=== PATIENT | female | born 1960 | race Caucasian/White ===

== ENCOUNTER 2019-04-05 05:13 | Inpatient (IN) ==
--- NOTE | 2019-03-14 13:12 | PAT Medication Instructions ---
Medication Instructions Date of Service March 14, 2019 Home Medications Medication Instructions Recorded acetaminophen 1,000 mg PO Q8H PRN #90 cap 08/17/18 albuterol sulfate 1 puff INHALATION Q6H PRN omeprazole 20 mg PO QAM acetaminophen 1,000 mg PO Q8H PRN calcium carbonate [Calcium 600] 600 mg PO QAM cholecalciferol (vitamin D3) [Vitamin D3] 2,000 unit PO QAM meloxicam 15 mg PO QAM montelukast [Singulair] 10 mg PO PM vitamins A,C,N-ftuj-toxilo [PreserVision AREDS] 1 cap PO BID ASK your surgeon for instructions meloxicam 15 mg PO QAM STOP taking 2 weeks before surgery (or as soon as possible if surgery is within 2 weeks) vitamins A,C,B-parl-iaencm [PreserVision AREDS] 1 cap PO BID DO NOT take the morning of surgery calcium carbonate [Calcium 600] 600 mg PO QAM cholecalciferol (vitamin D3) [Vitamin D3] 2,000 unit PO QAM Take morning of surgery With a small sip of water, OTHERWISE NOTHING TO EAT OR DRINK AFTER MIDNIGHT: albuterol sulfate 1 puff INHALATION Q6H PRN (use if needed; please bring with you to hospital day of surgery if possible) omeprazole 20 mg PO QAM acetaminophen 1,000 mg PO Q8H PRN (okay to take up to 4 hours prior to surgery if needed) Take evening before surgery albuterol sulfate 1 puff INHALATION Q6H PRN (if needed) acetaminophen 1,000 mg PO Q8H PRN (if needed) montelukast [Singulair] 10 mg PO PM Other Notes If you have any questions please call us at [phone] or [phone] or [phone] or [phone]
--- NOTE | 2019-03-15 10:16 | Anesthesiology Consultation ---
Date of Service March 15, 2019 Assessment & Plan (1) Encounter for pre-operative examination: - Awaiting review preop testing. - Awaiting surgeon-ordered PCP clearance (Dr. Raza). Chart Review Chart Review: Patient seen in Pre Admission Testing Teaching & Discussion Pre-Anesthesia Teaching/Discussion Notes: Instructed NPO after midnight before surgery,except medications with 15 cc of water. Medication instructions provided according to the PAT guidelines. History Surgery Operation Date: 04/05/19 09:25 Proposed Procedures p Right Anterior Total Hip Arthroplasty - Vinod Singh DO Height/Weight Height: 5 ft 6 in Weight: 71 kg Allergies Allergy/AdvReac Type Severity Reaction Status Date / Time Sulfa (Sulfonamide Allergy UNKNOWN Verified 03/08/19 14:02 Antibiotics) REACTION Medications Home Medications Medication Instructions Recorded Confirmed Last Taken albuterol sulfate 1 puff INHALATION Q6H PRN 07/27/18 03/08/19 02/15/18 12:00 omeprazole 20 mg PO QAM 07/27/18 03/08/19 08/16/18 06:30 acetaminophen 1,000 mg PO Q8H PRN #90 cap 08/17/18 03/08/19 Unknown calcium carbonate [Calcium 600] 600 mg PO QAM 03/08/19 03/08/19 Unknown cholecalciferol (vitamin D3) 2,000 unit PO QAM 03/08/19 03/08/19 Unknown [Vitamin D3] meloxicam 15 mg PO QAM 03/08/19 03/08/19 Unknown montelukast [Singulair] 10 mg PO PM 03/08/19 03/08/19 Unknown vitamins A,C,U-icto-qwmvsw 1 cap PO BID 03/08/19 03/08/19 Unknown [PreserVision AREDS] Past Medical History Medical History Asthma stable Emphysema lung suspected per CXR GERD (gastroesophageal reflux disease) occasional Osteoarthritis Exercise / Class Metabolic Activity II 4-5 Yardwork/Stairs/Walk up hill Past Family History Family History Mother Family history of diabetes mellitus Sister Family history of diabetes mellitus Past Surgical History Surgical History History of arthroscopy of left knee History of colonoscopy History of left hip replacement 08/16/18: SAB x1 at L3-L4 at [facility] History of tooth extraction Past Anesthesia History No Hx of Anesthesia Complications and No Family Hx of Anesthesia Complications History of PONV No Hx of PONV and Hx of Motion Sickness (occasional) Social History Smoking Status: Never smoker Do You Dip or Chew Tobacco: No Hx Alcohol Use: No Hx Substance Use: No substance use type: does not use Review of Systems Occasional reflux. Patient denies chest pain, shortness of breath, dyspnea on exertion, cough, wheezing, palpitations. Physical Exam Vital Signs VITALS BP 111/74 P 66 TEMP 97.9 SP02 96%RA RESP 16 PHYSICAL Mildly decreased cervical extension (2/2 arthritis per patient) Full TMJ range of motion. TMD 3 finger breaths Mallampati Score 2 Dentition: missing side Lungs: clear throughout to auscultation Cardiac: regular rate and rhythm, no murmurs noted Spine: normal Carotid arteries: negative bruit Extremities: no edema Testing Electrocardiogram Date: 08/02/18 Findings: + NSR @ (89) Chest X-Ray Date: 08/02/18 Findings: + NAD Underlying emphysema is suspected.
[2019-03-15 10:58] LABS: Basophils # (auto) 0.02 K/uL (0-0.2); Basophils % (auto) 0.3 %; Eosinophils # (auto) 0.14 K/uL (0-0.5); Eosinophils % (auto) 2.1 %; Hematocrit (blood only) 40.7 % (37-47); Hemoglobin 14.2 g/dL (12.0-16.0); Immature Granulocytes # (auto) 0.01 K/uL (0.00-0.02); Immature Granulocytes % (auto) 0.2 %; Lymphocytes # (auto) 1.21 K/uL (1.2-3.4); Lymphocytes % (auto) 18.3 %; Mean Corpuscular Hemoglobin 30.4 pg (25-34); Mean Corpuscular Hgb Conc 34.9 g/dL (32-36); Mean Corpuscular Volume 87.2 fL (80-100); Mean Platelet Volume 9.5 fL (7.4-10.4); Monocytes % (auto) 7.6 %; Neutrophils # (auto) 4.74 K/uL (1.4-6.5); Neutrophils % (auto) 71.5 %; Platelet Count 238 K/uL (130-400); RDW Coefficient of Variation 12.8 % (11.5-14.5); RDW Standard Deviation 40.8 fL (36.4-46.3); Red Blood Count 4.67 M/uL (4.2-5.4); White Blood Count 6.62 K/uL (4.8-10.8)
[2019-03-15 11:03] LABS: Appearance Urine Clear (Clear); Bacteria Urine Automated Negative (Negative); Bilirubin Urine Negative (Negative); Blood Urine Trace (Negative); Color Urine Yellow; Epithelial Cell Urine Auto 0-5 /lpf (0-5); Glucose Urine UA Negative (Negative); Ketones Urine Negative (Negative); Leukocyte Esterase Urine Negative (Negative); Nitrite Urine Negative (Negative); Protein Urine Negative (Negative); RBC Urine Automated 0-4 /hpf (0-4); Specific Gravity Urine 1.021 (1.000-1.030); Urobilinogen Urine Negative (Negative)
[2019-03-15 11:07] LABS: BUN Creatinine Ratio 14.7 (10-20); Calcium 9.5 mg/dl (8.5-10.1); Creatinine Clr Calc Pharmacy 69.2 ml/min; Est GFR (African American) 90.8; Est GFR (Non-African American) 78.3; Potassium 4.2 mmol/L (3.5-5.1)
[2019-03-15 11:09] LABS: Partial Thromboplastin Ratio 0.9; Partial Thromboplastin Time 23.9 Seconds (21.0-31.0); Prothrombin Time 9.8 Seconds (9.0-12.0)
[2019-03-15 11:25] LABS: Estimated Average Glucose 97 mg/dl
--- NOTE | 2019-03-28 14:01 | Anesthesiology Consultation ---
Date of Service March 28, 2019 Assessment & Plan (1) Encounter for pre-operative examination: Chart Review Chart Review: Acceptable Risk for Surgery The PCP has cleared the patient for surgery. History Surgery Operation Date: 04/05/19 09:25 Proposed Procedures p Right Anterior Total Hip Arthroplasty - Vinod Singh DO Height/Weight Height: 5 ft 6 in Weight: 71 kg Allergies Allergy/AdvReac Type Severity Reaction Status Date / Time Sulfa (Sulfonamide Allergy UNKNOWN Verified 03/08/19 14:02 Antibiotics) REACTION Medications Home Medications Medication Instructions Recorded Confirmed Last Taken albuterol sulfate 1 puff INHALATION Q6H PRN 07/27/18 03/08/19 02/15/18 12:00 omeprazole 20 mg PO QAM 07/27/18 03/08/19 08/16/18 06:30 acetaminophen 1,000 mg PO Q8H PRN #90 cap 08/17/18 03/08/19 Unknown calcium carbonate [Calcium 600] 600 mg PO QAM 03/08/19 03/08/19 Unknown cholecalciferol (vitamin D3) 2,000 unit PO QAM 03/08/19 03/08/19 Unknown [Vitamin D3] meloxicam 15 mg PO QAM 03/08/19 03/08/19 Unknown montelukast [Singulair] 10 mg PO PM 03/08/19 03/08/19 Unknown vitamins A,C,P-wnyi-rpoflw 1 cap PO BID 03/08/19 03/08/19 Unknown [PreserVision AREDS] Past Medical History Medical History Asthma stable Emphysema lung suspected per CXR GERD (gastroesophageal reflux disease) occasional Osteoarthritis Past Family History Family History Mother Family history of diabetes mellitus Sister Family history of diabetes mellitus Past Surgical History Surgical History History of arthroscopy of left knee History of colonoscopy History of left hip replacement 08/16/18: SAB x1 at L3-L4 at [facility] History of tooth extraction Social History Smoking Status: Never smoker Do You Dip or Chew Tobacco: No Hx Alcohol Use: No Hx Substance Use: No substance use type: does not use Testing Laboratory Results 03/15/19 10:13 03/15/19 10:13 PT 9.8 Seconds (9.0-12.0) 03/15/19 10:13 INR 1.0 (0.9-1.1) 03/15/19 10:13 APTT 23.9 Seconds (21.0-31.0) 03/15/19 10:13 Hemoglobin A1c 5.0 % (4.5-5.6) 03/15/19 10:13 Urine Color Yellow 03/15/19 08:21 Urine Appearance Clear (Clear) 03/15/19 08:21 Urine pH 5.0 (4.5-7.5) 03/15/19 08:21 Ur Specific [place] 1.021 (1.000-1.030) 03/15/19 08:21 Urine Protein Negative (Negative) 03/15/19 08:21 Urine Glucose (UA) Negative (Negative) 03/15/19 08:21 Urine Ketones Negative (Negative) 03/15/19 08:21 Urine Nitrite Negative (Negative) 03/15/19 08:21 Ur Leukocyte Esterase Negative (Negative) 03/15/19 08:21 Urine WBC (Auto) 1-5 /hpf (0-5) 03/15/19 08:21 Urine RBC (Auto) 0-4 /hpf (0-4) 03/15/19 08:21 U Hyaline Cast (Auto) 1-5 /lpf (0-5) 03/15/19 08:21 U Epithel Cells (Auto) 0-5 /lpf (0-5) 03/15/19 08:21 Urine Bacteria (Auto) Negative (Negative) 03/15/19 08:21 Blood Type B Positive 03/15/19 10:13 Antibody Screen POSITIVE A 03/15/19 10:13 03/15/19 10:13 Urine Culture - Final Urine,Clean Catch Three types of organisms present, all low counts probable skin anastasia. No further identifications or sensitivities to follow. Electrocardiogram Date: 08/02/18 Findings: + NSR @ (89) Chest X-Ray Date: 08/02/18 Findings: + NAD
--- NOTE | 2019-04-04 15:02 | History & Physical Report ---
Date of Service April 04, 2019 Assessment & Plan (1) Degenerative joint disease of right hip: I have indicated the patient for right anterior total hip replacement. The risks, benefits and complications of surgery were explained to the patient which include but not limited to infection, acute blood loss, DVT/PE, injury to nerves, vessels, bone, soft tissue, arthrofibrosis, chronic pain, failure of the prosthesis, hip dislocation, leg length discrepancy, need for additional surgery, cardiac and pulmonary events and . The patient wished to proceed with surgery and informed consent was obtained at this time. We will plan for ASA BID post-operatively for DVT prophylaxis. Upon discharge the patient will be discharged home with home health services. Appropriate clearances by PCP were obtained. History of Present Illness Chief Complaint: Right hip pain/djd Primary Care Provider: Layla Raza The patient is a 59 year old female who presents with complaints of severe right hip pain and DJD. The patient has failed outpatient conservative treatments to this point which included NSAIDs, IA corticosteroid injection, PT, home exercise/walking program. The patient's pain and limited function have progressed to the point where they severely hinder their activities of daily living and they no longer tolerate exercise programs. They are requesting to proceed with total hip replacement surgery. Allergies Allergy/AdvReac Type Severity Reaction Status Date / Time Sulfa (Sulfonamide Allergy UNKNOWN Verified 04/05/19 05:47 Antibiotics) REACTION Home Medications Home Medications Medication Instructions Recorded Confirmed Type albuterol sulfate 1 puff INHALATION Q6H PRN 07/27/18 04/05/19 History omeprazole 20 mg PO QAM 07/27/18 04/05/19 History acetaminophen 1,000 mg PO Q8H PRN #90 cap 08/17/18 04/05/19 Rx calcium carbonate [Calcium 600] 600 mg PO QAM 03/08/19 04/05/19 History cholecalciferol (vitamin D3) 2,000 unit PO QAM 03/08/19 04/05/19 History [Vitamin D3] meloxicam 15 mg PO QAM 03/08/19 04/05/19 History montelukast [Singulair] 10 mg PO PM 03/08/19 04/05/19 History vitamins A,C,G-wded-malkdi 1 cap PO BID 03/08/19 04/05/19 History [PreserVision AREDS] Past Med/Surg History Medical History Asthma stable Emphysema lung suspected per CXR GERD (gastroesophageal reflux disease) occasional Osteoarthritis Surgical History History of arthroscopy of left knee History of colonoscopy History of left hip replacement 08/16/18: SAB x1 at L3-L4 at [facility] History of tooth extraction Family History Mother Family history of diabetes mellitus Sister Family history of diabetes mellitus Social History Preferred Language: Danish Communication Ability: Effective Aids Counselor Required: No Beliefs That Will Affect Care: None marital status: Current Living Situation: Spouse Other Information That Helps Us Care for You: No Feels Safe at Home: Yes Safety Concerns: Feels Safe At This Time Smoking Status: Never smoker Do You Dip or Chew Tobacco: No ; Second Hand Exposure: No ; Hx Alcohol Use: No Hx Substance Use: No Review of Systems Review of Systems: All systems reviewed & are unremarkable except as noted in HPI & below Constitutional: as per Subjective / HPI Physical Exam Physical Exam: RLE NVSI +EHL/FHL/TA/GS SILT grossly, +2 DP pulse, compartments soft NT, limited painful ROM of the hip, antalgic gait. Constitutional: WD/WN, vitals as above Eyes: PERRL, conjunctivae normal, anicteric sclerae ENMT: external ear and nose normal, oropharynx normal Neck: trachea midline, no thyromegaly Respiratory: normal respiratory effort, lungs clear to auscultation Cardiovascular: RRR, no murmur, no edema Gastrointestinal (Abdomen): normal bowel sounds, soft, nontender, no hepatosplenomegaly Musculoskeletal: no cyanosis or clubbing, extremities motor strength 5/5 Skin: no rashes, warm and dry Neurologic: patellar DTR's 2+ bilat, sensation intact Psychiatric: A+Ox3, euthymic affect Lymphatic: no cervical or axillary lymphadenopathy Results & Data Diagnostic Findings Multiple views of the hip demonstrates severe DJD with complete loss of the joint space. +osteophytes, +sclerosis, +subchondral cysts.
[2019-04-05] MEDS ORDERED: CeleBREX 200 MG CAP PO SCH (06:00)
[2019-04-05] MEDS ORDERED: ACETAMINOPHEN 500 MG TAB PO SCH (06:00)
[2019-04-05] MEDS ORDERED: LR 15ML/HR IV SCH (06:00)
[2019-04-05] MEDS ORDERED: METOCLOPRAMIDE HCL 10 MG TABLET PO SCH (06:00)
[2019-04-05] MEDS ORDERED: TRANEXAMIC ACID 1,000 MG **IV Pre-op IV SCH (06:00)
[2019-04-05] MEDS ORDERED: FAMOTIDINE 20 MG TAB PO SCH (06:00)
[2019-04-05] MEDS ORDERED: ROPIVACAINE 0.5% HCL/PF 150 MG, BUPIVACAINE 0.5% MPF 30 ML, EPINEPHrine 30MG/30ML (OR U... INFIL SCH (06:00)
[2019-04-05] MEDS ORDERED: dexAMETHasone 4 MG TAB PO SCH (06:00)
[2019-04-05] MEDS ORDERED: BUPIVACAINE 0.5 % 5 MG/1 ML PF 10ML VIAL ONE (06:23)
[2019-04-05] MEDS ORDERED: TRANEXAMIC ACID 1,000 MG **IV Intra-op IV SCH (06:30)
[2019-04-05] MEDS ORDERED: ePHEDrine sulfate 50 MG/ML AMP IV PRN (06:44)
[2019-04-05] MEDS ORDERED: ONDANSETRON INJ 2 MG/ML 2 ML VIAL IV PRN ×2 (06:44→11:06)
[2019-04-05] MEDS ORDERED: fentaNYL citrate 100 MCG/2 ML VIAL IV PRN (06:44)
[2019-04-05] MEDS ORDERED: ATROPINE SULFATE 0.1 MG/ML 10ML SYR IV PRN (06:44)
[2019-04-05] MEDS ORDERED: MIDAZOLAM HCL 1 MG/ML 2ML VIAL ONE ×2 (06:54→08:05)
[2019-04-05] MEDS ORDERED: PROPOFOL IV EMULSION 10 MG/ML 20 ML VIAL IV ONE (06:54)
[2019-04-05] MEDS ORDERED: LIDOCAINE HCL 2% 2 ML VIAL/AMP(20MG/ML) INFIL ONE (06:54)
[2019-04-05] MEDS ORDERED: fentaNYL citrate 100 MCG/2 ML VIAL ONE (06:54)
[2019-04-05] MEDS ORDERED: CEFAZOLIN 2,000 MG/15 ML IV PUSH IV ONE (07:02)
--- NOTE | 2019-04-05 07:05 | History & Physical Bridge Note ---
Date of Service April 05, 2019 History & Physical Bridge Note I have examined the patient, reviewed the History & Physical and in the interval since the performance of the History & Physical I have noted the following changes of clinical significance: no changes noted
[2019-04-05] MEDS ORDERED: CEFAZOLIN 2000MG 2,000 MG/15 ML SYR IV ONE (07:06)
[2019-04-05] MEDS ORDERED: ORTHO JOINT ANESTHETIC ONE (07:25)
[2019-04-05] MEDS ORDERED: BACITRACIN INJ 50,000 UNIT VIAL ONE (07:25)
--- NOTE | 2019-04-05 08:53 | Post Operative Brief Note ---
Immediate Post Op Note v1 Date of Surgery April 05, 2019 Pre & Post Diagnosis Operation Date: 04/05/19 07:15 Pre-Op Diagnosis: Unilateral Primary Osteoarthritis, Right Hip Post-Op Diagnosis: Unilateral Primary Osteoarthritis, Right Hip Procedure Operation Date: 04/05/19 07:15 Actual Procedures p Right Anterior Total Hip Arthroplasty(Right) - Vinod Singh DO Surgeon Vinod Singh DO Construction Grip Bro Fabian Estimated Blood Loss 175 Findings Consistent with Post-Op Diagnosis Fluids 1500 CC LR Specimens femoral head Anesthesia Type Spinal MAC Complications none Disposition Disposition: Recovery Room Overlapping Procedure I was present for: the critical portions of procedure. I was immediately available: during the entire case. Back up surgeon: was not required during procedure.
--- NOTE | 2019-04-05 09:01 | Operative Report ---
Post Operative Report Pre & Post Diagnosis Operation Date: 04/05/19 07:15 Pre-Op Diagnosis: Unilateral Primary Osteoarthritis, Right Hip Post-Op Diagnosis: Unilateral Primary Osteoarthritis, Right Hip Procedure Operation Date: 04/05/19 07:15 Actual Procedures p Right Anterior Total Hip Arthroplasty(Right) - Vinod Singh DO Surgeon Vinod Singh DO Medical Secretary Teacher Bro Fabian Estimated Blood Loss 175 Findings Consistent with Post-Op Diagnosis Fluids 1500 cc LR Specimens Femoral head Anesthesia Type Spinal MAC Complications none Disposition Disposition: Recovery Room Indications The patient is a 59-year-old female who presents with severe progressive right hip DJD who has failed outpatient conservative treatments. I indicated the patient for a anterior total hip replacement and the risks and benefits were explained in detail which include but not limited to infection, bleeding, blood clot, damage to surrounding bone, nerves, vessels, soft tissue, hip dislocation, failure of the prosthesis, leg length discrepancy, need for additional surgery and . The patient agreed to proceed with replacement of the hip and informed consent was obtained. Appropriate clearances were obtained. Description of Procedure COMPONENTS USED: [employer] hip system: Acetabulum size 50, femur size 6 high offset, femoral head 32-3, liner 3250, acetabular screw 25 mm x 1. DESCRIPTION OF PROCEDURE: Following satisfactory spinal anesthesia, the patient was placed supine on the OR table. The left leg was placed in the well leg h older and the right leg in the traction device. The right leg was prepared with ChloraPrep and draped sterilely. A surgical timeout was performed, patient identified and site gregory verified. Appropriate antibiotics were given. A standard anterior approach in the interval between the sartorius and tensor muscles was performed. Dissection was carried down through subcutaneous tissues. Electrocautery was utilized for hemostasis. Circumflex femoral vessels were identified, tied and ligated. The anterior capsular fat pad was removed and the capsulotomy was performed revealing the arthritic femoral neck and head. A femoral neck cut was made with reciprocating saw and the bone fragments removed. The acetabular self-retraining retractor was placed. Acetabular reaming was completed under fluoroscopic guidance, a 50 shell was impacted into an anatomic position and secured with a dome screw. Local anesthetic was placed and following irrigation, the polyethylene liner was placed. The femur was placed into position of external rotation, extension and adduction. Femoral canal was prepared up to the size 6 high offset. Trial reduction with a -3 neck length head showed good soft tissue tension, leg lengths restored, and good fit and fill of the proximal canal using fluoroscopic landmarks. The hip was dislocated. The trial component was removed. The final implant was placed. The hip was irrigated with sterile saline solution and reduced. A Betadine soak was performed. After 3 minutes, the hip was once more irrigated with copious sterile saline solution with bacitracin. Alanna-incisional soft tissue was injected utilizing [place] [employer] which includes a combination of Ropivicaine 0.5% 150mg, Bupivicaine 0.5%/Epinephrine 1:200,000 30ml, Toradol 30mg, Dexamethasone 4mg, Ketamine 10mg, Clonidine 100mcg and NSS 30ml solution. The capsule was then closed with 1-0 Vicryl interrupted figure of eight sutures. The fascia was closed with a running suture of #1 Vicryl, the subcutaneous tissues with 2-0 Vicryl and the skin with a running subcuticular stitch of 3-0 V-Loc. Dermabond prineo and a dry dressing were applied. The patient tolerated the procedure well and was transported to PACU in stable condition. Due to the complex nature of the procedure, the entire surgery was performed with the operational assistance of Bro Fabian PA-C. The regulatory assistant, under direct supervision, was involved in the actual performance of all aspects of the surgical procedure including patient positioning, hemostasis, tissue retraction, instrument management and wound closure. I attest to the content of the Intraoperative Record and any orders documented therein. Any exceptions are noted below.
--- NOTE | 2019-04-05 09:14 | Fluoroscopy Report ---
FL hip RT 1V CLINICAL HISTORY: RT ANTERIOR HIP COMPARISON STUDY: None. FLUOROSCOPY TIME: 45 seconds. FINDINGS: 2 fluoroscopic spot images of the right hip demonstrate a right total hip arthroplasty. The hardware appears intact. No fracture or dislocation. IMPRESSION: Fluoroscopy provided for right total arthroplasty. Electronically signed by: Evangelist Reagan M.D. 04/05/2019 9:12 AM
[2019-04-05] MEDS ORDERED: ePHEDrine sulfate 50 MG/ML SYR ONE (09:24)
--- NOTE | 2019-04-05 09:46 | XRay Report ---
XR hip 1V RT w pelvis CLINICAL HISTORY: Degenerative arthritis. Postop hip arthroplasty COMPARISON: August 16, 2018 DISCUSSION: There is no change in the appearance of the total left hip arthroplasty. Now evident is a total right hip arthroplasty. The femoral and acetabular components appear well seated. There are no acute fractures. There is no dislocation. IMPRESSION: Postsurgical changes of a total right hip arthroplasty. No complicating features identifi ed Electronically signed by: Teddy Zarco M.D. 04/05/2019 9:44 AM
--- NOTE | 2019-04-05 10:23 | Anesthesiology Progress Note ---
Date of Service April 05, 2019 Anesthesia Post Procedure Vital Signs Vital Signs: Temp Pulse Pulse Resp BP Pulse Ox 04/05/19 10:20 63 16 112/69 100 04/05/19 10:10 57 L 12 101/62 100 04/05/19 10:00 97.2 F L 71 19 108/69 100 04/05/19 09:50 96.8 F L 59 L 13 114/68 100 04/05/19 09:40 96.8 F L 65 21 110/62 100 04/05/19 09:30 96.8 F L 65 21 107/65 100 04/05/19 09:20 96.8 F L 78 16 120/61 100 04/05/19 05:58 97.9 F 63 20 128/78 98 Transfer of Care Handoff Completed per policy Notes Mental Status: alert / awake / arousable and participated in evaluation Patient Amnestic to Procedure: Yes Nausea / Vomiting: adequately controlled Pain: adequately controlled Airway Patency, RR, SpO2: stable & adequate BP & HR: stable & adequate Hydration State: stable & adequate Neuraxial Anesthesia: was administered and sensory block is resolving Anesthetic Complications: no major complications apparent and Pt Satisfied with anesthetic care
[2019-04-05] MEDS ORDERED: HYDROmorphone INJ 0.5 MG/0.5 ML SYR IV PRN (11:06)
[2019-04-05] MEDS ORDERED: ALBUTEROL HFA 8 GM INHALER INH PRN (11:06)
[2019-04-05] MEDS ORDERED: bisacodyL 10 MG SUPP PR PRN (11:06)
[2019-04-05] MEDS ORDERED: NALOXONE HCL 0.4 MG/1 ML VIAL/CARP IV PRN (11:06)
[2019-04-05] MEDS ORDERED: OXYCODONE HCL IR 5 MG TAB (IMMEDIATE RELEASE) PO PRN (11:06)
[2019-04-05] MEDS ORDERED: METOCLOPRAMIDE HCL INJ 5 MG/ML 2 ML VIAL IV PRN (11:06)
[2019-04-05] MEDS ORDERED: SODIUM CHLORIDE 0.9% 1000ML 1,000 ML IV SCH (11:06)
[2019-04-05] MEDS ORDERED: MAGNESIUM HYDROXIDE SUSP 30 ML UDC PO PRN (11:06)
[2019-04-05] MEDS: DOCUSATE SODIUM 100 MG CAP PO SCH ×2 (12:32→20:59)
[2019-04-05] MEDS: PANTOprazole 40 MG TAB PO SCH (12:33)
[2019-04-05] MEDS: KETOROLAC TROMETHAMINE 15 MG/ML VIAL IV SCH ×2 (12:33→17:15)
[2019-04-05] MEDS: MULTIVITAMIN TAB PO SCH (12:52)
[2019-04-05] MEDS: ACETAMINOPHEN 500 MG TAB PO SCH ×2 (14:22→22:11)
[2019-04-05] MEDS: CEFAZOLIN 2000MG 2,000 MG/15 ML SYR IV SCH ×2 (14:22→22:11)
--- NOTE | 2019-04-05 16:17 | Orthopedic Progress Note ---
Date of Service April 05, 2019 Assessment & Plan (1) Degenerative joint disease of right hip: s/p R Anterior AMBROCIO -ancef x 24 -DVT ppx: SCDs, TEDs, ASA BID -WBAT RLE -PT/OT -PO XR demonstrates well aligned well fixed orthopedic prothesis without fracture/dislocation -am labs -DC planning Subjective Post Operative Progress Note Patient seen sitting up in bed, comfortable, denies complaints, pain well controlled, no acute issues. Review of Systems Review of Systems: All systems reviewed & are unremarkable except as noted in HPI & below Constitutional: as per Subjective / HPI Physical Exam Physical Exam: RLE NVSI +EHL/FHL/TA/GS SILT grossly, +2 DP pulse, compartments soft NT, dressing cdi. Constitutional: WD/WN, vitals as above Results & Data Vital Signs (Past 12 Hours) Vital Signs Temp Pulse Pulse Resp BP Pulse Ox 04/05/19 15:00 36.4 C L 66 16 96/62 L 97 04/05/19 13:55 78 18 101/63 99 04/05/19 13:01 83 18 110/67 98 04/05/19 12:04 67 18 101/68 100 04/05/19 11:24 64 18 112/70 99 04/05/19 11:00 36.6 C 61 16 113/72 97 04/05/19 10:40 36.4 C L 61 20 105/72 98 04/05/19 10:30 64 17 105/65 99 04/05/19 10:20 63 16 112/69 100 04/05/19 10:10 57 L 12 101/62 100 04/05/19 10:00 36.2 C L 71 19 108/69 100 04/05/19 09:50 36.0 C L 59 L 13 114/68 100 04/05/19 09:40 36.0 C L 65 21 110/62 100 04/05/19 09:30 36.0 C L 65 21 107/65 100 04/05/19 09:20 36.0 C L 78 16 120/61 100 04/05/19 05:58 36.6 C 63 20 128/78 98
[2019-04-05] MEDS ORDERED: SENNA 8.6 MG TAB PO SCH (21:00)
[2019-04-06] MEDS: KETOROLAC TROMETHAMINE 15 MG/ML VIAL IV SCH ×2 (00:09→05:44)
[2019-04-06] MEDS: ACETAMINOPHEN 500 MG TAB PO SCH ×2 (05:44→13:28)
[2019-04-06 06:03] LABS: Eosinophils # (auto) 0.01 K/uL (0-0.5); Eosinophils % (auto) 0.1 %; Hematocrit (blood only) 33.4 % (37-47); Hemoglobin 11.4 g/dL (12.0-16.0); Immature Granulocytes # (auto) 0.04 K/uL (0.00-0.02); Immature Granulocytes % (auto) 0.3 %; Lymphocytes # (auto) 1.29 K/uL (1.2-3.4); Lymphocytes % (auto) 8.7 %; Mean Corpuscular Hemoglobin 30.5 pg (25-34); Mean Corpuscular Hgb Conc 34.1 g/dL (32-36); Mean Corpuscular Volume 89.3 fL (80-100); Mean Platelet Volume 9.8 fL (7.4-10.4); Monocytes # (auto) 1.06 K/uL (0.11-0.59); Monocytes % (auto) 7.1 %; Neutrophils # (auto) 12.49 K/uL (1.4-6.5); Neutrophils % (auto) 83.8 %; Platelet Count 223 K/uL (130-400); RDW Coefficient of Variation 12.8 % (11.5-14.5); RDW Standard Deviation 40.8 fL (36.4-46.3); Red Blood Count 3.74 M/uL (4.2-5.4); White Blood Count 14.89 K/uL (4.8-10.8)
[2019-04-06 06:35] LABS: BUN Creatinine Ratio 14.1 (10-20); Calcium 8.5 mg/dl (8.5-10.1); Creatinine Clr Calc Pharmacy 53.5 ml/min; Est GFR (African American) 66.6; Est GFR (Non-African American) 57.4
[2019-04-06] MEDS ORDERED: KETOROLAC TROMETHAMINE 15 MG/ML VIAL IV SCH (07:30)
[2019-04-06] MEDS: DOCUSATE SODIUM 100 MG CAP PO SCH (07:46)
[2019-04-06] MEDS: MULTIVITAMIN TAB PO SCH (07:47)
[2019-04-06] MEDS: PANTOprazole 40 MG TAB PO SCH (07:47)
--- NOTE | 2019-04-06 08:49 | Orthopedic Progress Note ---
Date of Service April 06, 2019 Assessment & Plan (1) Degenerative joint disease of right hip: s/p R Anterior AMBROCIO POD#1 -ancef x 24 -DVT ppx: SCDs, TEDs, ASA BID -WBAT RLE -PT/OT -PO XR demonstrates well aligned well fixed orthopedic prothesis without fracture/dislocation -am labs - hgb 11.4 -DC planning - home with HH Subjective Post Operative Progress Note Patient seen sitting up in bed, comfortable, denies complaints, pain well con trolled, no acute issues. Denies F/C/N/V/SOP/CP Review of Systems Review of Systems: All systems reviewed & are unremarkable except as noted in HPI & below Constitutional: as per Subjective / HPI Physical Exam Physical Exam: RLE NVSI +EHL/FHL/TA/GS SILT grossly, +2 DP pulse, compartments soft NT, dressing cdi. Constitutional: WD/WN, vitals as above Results & Data Vital Signs (Past 12 Hours) Vital Signs Temp Pulse Resp BP BP Pulse Ox 04/06/19 06:32 36.5 C 69 16 102/66 99 04/06/19 04:08 36.8 C 69 16 99/61 L 97 04/06/19 00:19 93/55 L 91/50 L 04/05/19 23:40 36.8 C 75 16 86/52 L 91/53 L 97 Laboratory Results 04/06/19 04/06/19 04/03/19 Range/Units 05:20 05:20 13:14 WBC 14.89 H (4.8-10.8) K/uL RBC 3.74 L (4.2-5.4) M/uL Hgb 11.4 L (12.0-16.0) g/dL Hct 33.4 L (37-47) % MCV 89.3 (80-100) fL MCH 30.5 (25-34) pg MCHC 34.1 (32-36) g/dL RDW Std Deviation 40.8 (36.4-46.3) fL RDW Coeff of Alek 12.8 (11.5-14.5) % Plt Count 223 (130-400) K/uL MPV 9.8 (7.4-10.4) fL Immature Gran % (Auto) 0.3 % Neut % (Auto) 83.8 % Lymph % (Auto) 8.7 % Wirt % (Auto) 7.1 % Eos % (Auto) 0.1 % Baso % (Auto) 0.0 % Immature Gran # (Auto) 0.04 H (0.00-0.02) K/uL Neut # (Auto) 12.49 H (1.4-6.5) K/uL Lymph # (Auto) 1.29 (1.2-3.4) K/uL Wirt # (Auto) 1.06 H (0.11-0.59) K/uL Eos # (Auto) 0.01 (0-0.5) K/uL Baso # (Auto) 0.00 (0-0.2) K/uL Sodium 141 (136-145) mmol/L Potassium 4.0 (3.5-5.1) mmol/L Chloride 107 (98-107) mmol/L Carbon Dioxide 26 (21-32) mmol/L Anion Gap 8.0 (3-11) BUN 15 (7-18) mg/dl Creatinine 1.06 (0.6-1.2) mg/dl Est Cr Clr Drug Dosing 53.5 ml/min Est GFR ( Amer) 66.6 Est GFR (Non-Af Amer) 57.4 BUN/Creatinine Ratio 14.1 (10-20) Glucose 95 (70-99) mg/dl Calcium 8.5 (8.5-10.1) mg/dl Antibody ID Comment
[2019-04-06] MEDS ORDERED: ASPIRIN 325 MG ECTAB PO SCH (09:00)
--- NOTE | 2019-04-06 19:37 | Discharge Summary ---
Date of Service April 06, 2019 Admission HPI Per Admitting Provider The patient is a 59 year old female who presents with complaints of severe right hip pain and DJD. The patient has failed outpatient conservative treatments to this point which included NSAIDs, IA corticosteroid injection, PT, home exercise/walking program. The patient's pain and limited function have progressed to the point where they severely hinder their activities of daily living and they no longer tolerate exercise programs. They are requesting to proceed with total hip replacement surgery. Principal Diagnosis Right anterior total hip replacement Discharge Exam RLE NVSI +EHL/FHL/TA/GS SILT grossly, +2 DP pulse, compartments soft NT, dressing cdi. Constitutional WD/WN, vitals as above Discharge Data Allergies Allergy/AdvReac Type Severity Reaction Status Date / Time Sulfa (Sulfonamide Allergy UNKNOWN Verified 04/05/19 05:47 Antibiotics) REACTION Consultations 04/06/19 08:00 Consult Case Management - Discharge Planning Routine Procedures Performed Operation Date: 04/05/19 07:15 Actual Procedures p Right Anterior Total Hip Arthroplasty(Right) - Vinod Singh DO Ordered Studies 04/05/19 07:15 FL fluoroscopy <1hr Routine FL hip RT 1V Routine Hospital Course (1) Degenerative joint disease of right hip: The patient is a 59 -year-old female who presents with long standing history of severe right hip DJD and failed outpatient conservative treatments including NSAIDs, bracing, injections and home walking/exercise program. The patient's symptoms have progressed to the point where it has been difficult to perform even normal activities of daily living. I indicated the patient for a right anterior total hip arthroplasty, the risks, benefits and complications of the procedure include but not limited to infection, bleeding, damage to bone, nerves, vessels, surrounding soft tissue, may develop blood clots, loss of function, leg length discrepancy, dislocation, failure of the components, loosening of the components, the need for additional surgery and . The patient wished to proceed with surgery at this time and informed consent was obtained. Hospital Course: On 04/05/19 the patient was taken to the operating room, adequate anesthesia administered and underwent a right anterior total hip arthroplasty. The patient tolerated the procedure well and was taken to the PACU in stable condition. Post-operatively the patient was started on a DVT ppx medication and given appropriate IV antibiotics. Consults were placed to physical therapy, occupational therapy and case management. On POD#1, the patient did well overnight and their pain was well controlled. Labs were drawn and the Hgb was 11.4. The patient progressed well with PT. Dressings were changed at this time and the incision was clean, dry and intact. The patients hospital stay was relatively uneventful and they were deemed stable by the orthopedic team and consultants to be discharged home with HH on 04/06/19. Discharge Instructions: Upon discharge the patient may weight bear as tolerates through their operative extremity. They were instructed to keep the incision clean and dry at all times. The patient may shower but should not submerge the incision, avoid bathing, pools and hot tubes. The patient was given a script for pain medication and should take as instructed. The patient was given a script for DVT ppx ASA 325mg BID and should take as directed. The patient was instructed to not drive or travel for long distances until cleared to do so. If the patient develops any symptoms of fevers, chills, nausea, vomiting, increased redness, swelling, pain or drainage from the surgical site, they should notify the office and/or proceed to the nearest emergency room. The patient should follow up in 10-14 days after surgery for their routine post-operative follow-up appointment and should call the office to confirm the date and time. s/p R Anterior AMBROCIO POD#1 -ancef x 24 -DVT ppx: SCDs, TEDs, ASA BID -WBAT RLE -PT/OT -PO XR demonstrates well aligned well fixed orthopedic prothesis without fracture/dislocation -am labs - hgb 11.4 -DC planning - home with HH Total Time Total Time Spent Total Time Spent (In Minutes): 30 minutes Total Time Includes: Examination of the Patient, Discharge Planning, Medication Reconciliation and Communication With Other Providers Discharge Plan Discharge Items Patient Disposition: Home - Home Health Services Reason For Visit: Unilateral Primary Osteoarthritis, Right Hip Discharge Diagnosis: Right anterior total hip replacement Condition on Discharge: Good Activity: Per Instructions section Lifting: Wait until after follow-up appointment Bathing: Keep incision dry Bathing Comment: No bathing, pools or hot tubs Sexual Activity: Wait until after follow-up appointment Exercise/Sports: Wait until after follow-up appointment Driving/Machine Use: No driving till cleared by your surgeon Weightbearing: Right weightbearing Non-emergency contact: Primary Care Provider and Surgeon Call non-emergency contact if: you have any medication questions, your symptoms worsen, your pain is not controlled, your pain is worsening, your pain is unusual for you, your pain is concerning for you, you have a fever, your temperature is above 101, your wound has increased redness, your wound has increased drainage and your wound pain has increased Follow-up/Referrals: Layla Raza D.O. [Primary Care Provider] - Diet: Regular Addtl Attending Provider Instructions: ACTIVITY RECOMMENDATIONS: SELF CARE INSTRUCTIONS AFTER TOTAL HIP REPLACEMENT : Direct Anterior Approach Until the incision and soft tissues around your hip have healed, there is a possibility that the hip prosthesis could dislocate. A. Hip flexion ( Up & Down out of chair or steps ) may be difficult. This is normal. B. Numbness in front of the thigh is also normal for a few weeks. C. Use hand rails when walking on stairs. D. Wear low heeled shoes with non-slip soles. E. Be sure that your floors are free of things that could trip you - throw rugs, electrical cords, small objects. Avoid wet and waxed floors, especially with crutches and canes. F. Try to walk several times a day with rest periods between. G. Continue with all the exercises taught to you in the hospital. Again, make walking a part of your daily routine. SPECIAL CARE INSTRUCTIONS: VERY IMPORTANT TO READ AND REVIEW A. You may still be at risk for phlebitis and blood clots. 1. Wear surgical stockings (VALERIO hose) for 2 weeks after surgery to improve circulation and reduce swelling. 2. Take Aspirin 325mg twice daily for 4 weeks or as directed by your doctor. This is your blood thinner. 3. High risk patients may be prescribed a stronger blood thinner if necessary. 4. If you are on Coumadin normally, your family doctor/test engineer nuclear equipment should monitor your blood work. Expect a phone call the day of or the day after bloodwork is drawn to adjust your dosage. B. You must take antibiotics before having dental work, bladder, bowel and other surgery. Your doctor will provide you with a permanent card to carry describing precautions. C. Call [facility] if you have a fever, redness or swelling around the incision, cloudy drainage from incision, or sudden increase in pain in your hip, not relieved by your regular pain medication. D. Please call the office at if you have any concerns or questions about your operation or recovery. * YOU MAY SHOWER, NO TUB BATHS UNTIL CLEARED BY YOUR DOCTOR. - Keep an extra close eye on the top portion of your incision. Be sure to keep clean & dry. * WEAR VALERIO HOSE 20 HOURS PER DAY FOR 2 WEEKS. * YOU MAY PROGRESS FROM A WALKER, TO A CANE, TO INDEPENDENT AT YOUR OWN PACE. * MOST PATIENTS WILL HAVE HOME NURSING FOR THERAPY. IF YOU DECIDE TO DO OUTPATIENT PHYSICAL THERAPY, PLEASE SCHEDULE THIS 3 TIMES PER WEEK. * DERMABOND Prineo- This is a mesh tape dressing that is covered with glue. It should remain in place until the incision is properly healed, usually 10-14 days. This dressing is designed to naturally slough off. You may trim the excess mesh tape as it peels off. Incision may be briefly wet in a shower. Dry immediately by blotting with a clean, dry towel. Do not bath or swim until instructed by your doctor. Do not scratch, rub, or pick at the dressing. Do not apply any topical ointments or lotions until dressing is completely removed and/or instructed by your doctor. There may be a small piece of suture material at one end of your incision. Do not pull or trim this. If it is bothersome or catching on clothing, you may cover it with a band-aid. FOLLOW UP VISIT: If appointment is not already scheduled: Please call [facility] to make a follow-up appointment for 2 weeks after your surgery at . Pending Studies at Discharge: No Stand-Alone Forms: My [facility], Opioid Pain Management Medications and DC Order Prescriptions: New acetaminophen [Tylenol Extra Strength] 500 mg Tablet 1,000 mg PO Q8 PRN (Reason: pain and/or fever) Qty: 90 RF: 0 aspirin 325 mg Tablet,Delayed Release (Dr/Ec) 325 mg PO BID Qty: 56 RF: 0 oxycodone 5 mg Tablet 5 mg PO Q6H MDD 6 tabs PRN (Reason: pain) Qty: 30 RF: 0 sennosides [Senokot] 8.6 mg Tablet 17.2 mg PO HS PRN (Reason: constipation) Qty: 28 RF: 0 Continued calcium carbonate [Calcium 600] 600 mg calcium (1,500 mg) Tablet 600 mg PO QAM RF: 0 montelukast [Singulair] 10 mg Tablet 10 mg PO PM RF: 0 cholecalciferol (vitamin D3) [Vitamin D3] 2,000 unit Tablet 2,000 unit PO QAM RF: 0 PreserVision AREDS [id number] Capsule 1 cap PO BID RF: 0 omeprazole 20 mg Capsule,Delayed Release(Dr/Ec) 20 mg PO QAM RF: 0 albuterol sulfate 90 mcg/actuation Hfa Aerosol Inhaler 1 puff INHALATION Q6H PRN (Reason: Wheezing) RF: 0 Discontinued acetaminophen 500 mg capsule 1,000 mg PO Q8H PRN (Reason: pain) Qty: 90 RF: 0 meloxicam 15 mg Tablet 15 mg PO QAM RF: 0 Discharge Orders: Discharge Order (Routine); Ordered 04/06/19 Ordered By: Vinod Millan/Other Patient Handouts: Surgery Prevent DVT After, Replacement Hip Total, Replacement Hip After Hospital, Replacement Total Hip Activity Admission Data Admit Date/Time: 04/05/19 09:26 Attending Provider: Vinod Singh Admit Provider: Vinod Singh Primary Care Provider: Layla Raza Other Interventions: Discharge Summary Assessment (RN) Last Done: 04/06/19 09:04 DC Date/Time DO NOT enter until pt leaves facility: 04/06/19 14:24
== END 2019-04-06 14:24 | disposition home health service (06) | DRG 470 ==
LOC: ASU 05:13 → 3E 09:26